=== PATIENT | male | born 1960 | race Caucasian/White ===

== ENCOUNTER 2024-10-16 22:57 | Emergency (ER) | payer MEDICARE, BC, SELFPAY ==
--- OUTSIDE RECORDS SUMMARY | 2024-10-16 23:00 | XMS_ITS | Clinical Summary ---
Author Organization [facility] Address [address] [place] [id number] Care Team Providers Care Budget Coordinator Name Role Phone Eric Vogel MD Primary Care Provider [phone] Brigitte Jimenez MD Unavailable [phone] Allergies Active Allergy Reactions Criticality Noted Date Comments Ketoconazole Rash Medications aspirin (ECOTRIN) 81 mg enteric coated tablet Take 81 mg by mouth once daily. Active nitroglycerin (NITROSTAT) 0.4 mg sublingual tabletIndication s:NSTEMI (non-ST elevation myocardial infarction) (HC) Place 1 Tablet (0.4 mg) under the tongue every 5 minutes if needed for Chest pain 1st choice (Hold if SBP less than 90 mmHg). Up to 3 tablets in 15 minutes. 15 Tablet 05/28/2023 9:55 AM FOUNTAIN SUPERVISOR 4 Active ramipriL (ALTACE) 5 mg capsuleIndicatio ns:NSTEMI (non-ST elevation myocardial infarction) (HC) Take 1 Capsule (5 mg) by mouth once daily. 90 Capsule 4 5 Active atorvastatin (LIPITOR) 80 mg tabletIndication s:NSTEMI (non-ST elevation myocardial infarction) (HC) Take 1 Tablet (80 mg) by mouth once daily. For Cholesterol. 90 Tablet 3 5 Active famotidine (PEPCID) 40 mg tabletIndication s:Gastroesophage al reflux disease, unspecified whether esophagitis present Take 1 Tablet (40 mg) by mouth once daily. For stomach acid. 90 Tablet 3 5 Active gabapentin (NEURONTIN) 300 mg capsuleIndicatio ns:Neck pain, chronic,Radicula r pain in right arm Take 1 Capsule (300 mg) by mouth at bedtime. For nerve symptoms. 90 Capsule 3 5 Active pantoprazole (PROTONIX) 40 mg delayed-release tabletIndication s:Gastroesophage al reflux disease, unspecified whether esophagitis present Take 1 Tablet (40 mg) by mouth once daily. For stomach acid. 90 Tablet 3 5 Active polyethylene glycol-electroly te (GOLYTELY) 236-22.74-6.74 -5.86 gram suspensionIndica tions:Encounter for screening colonoscopy Drink 2 liters the day before the procedure and 2 liters 6 hours prior to procedure. 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 Sosa, increased ramipril to 5 mg a day ASHD (arteriosclerotic heart disease) 05/28/2023 Overview (05/28/2023): - angiogram : s/p EDUAR mLAD Unstable angina 05/27/2023 Dyslipidemia 05/27/2023 NSTEMI (non-ST elevation myocardial infarction) 05/26/2023 Overview (05/26/2023): April 2023: Occurred when at [facility], with hsTroponin peaking over 1,000. Elevated fasting glucose 04/08/2023 Overview (05/08/2024): March 2023: glucose 111. Needs recheck. May 2023: Fasting glucose 114 and hemoglobin A1c of 5.9 on recheck. April 2024: Hemoglobin A1c 5.8 and glucose 108. 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 June 2023: Atorvastatin (Lipitor) 80 mg was started after new diagnosis of acute UT May 2023. Allergic conjunctivitis of both eyes 12/09/2019 Umbilical hernia without mention of obstruction or gangrene 06/19/2011 Colon polyp 05/21/2011 Overview (06/23/2024): Colonoscopy 04/2011 polyps repeat in 3 years Colonoscopy 02/2016 multiple polyps repeat in 3 years Colonoscopy 02/2020 polyps, repeat in 3 years Colonoscopy 06/2024 3-TA, repeat in 5 years Nephrolithiasis 08/27/2009 GERD (gastroesophageal reflux disease) 0 Displacement of lumbar inter vertebral disc without myelopathy 09/08/2007 Overview (12/03/2016): ~ May 2016: L4-L5 TF epidural steroid injection by Dr. Mckeon, 80% improvement for 1 month. ~ October 2016: L3-L4 Interlaminar epidural steroid injection by Dr. Mckeon. Significant improvement. Thoracic or lumbosacral neur itis or radiculitis, unspecified 09/08/2007 Immunizations Immunization Administration Dates Next Due COVID-19 vaccine ([employer] 30mcg/0.3mL) PF, MDV 06/29/2020,06/01/2020 Hepatitis B (Adult) 12/16/2018,07/05/2018,2018 Influenza Virus, Unspecified 12/22/2015 Influenza, IIV4 (=>6mos) MDV 12/06/2019,01/18/20 19 Influenza, Inactivated AIIV4 (Age 65+ Years) Preserv Free 04/06/2023 Influenza, Inactivated IIV3 (Age 65+ Years) Preserv Free 03/29/2024 Pneumococcal Conj 20-valent (Prevnar 20) 024 Tdap 05/14/2009 Family History Medical History Relation Name Comments Heart Disease Father CHF. Arthritis Mother Hypertension Mother Relation Name Status Comments Father Mother Alive Social History Tobacco Use Types Packs/Day Years Used Date Smoking Tobacco: Former Cigarettes Q uit: 03/23/1977 Smokeless Tobacco: Never Tobacco Cessation:Counseling Given: Yes Alcohol Use Standard Drinks/Week Comments Yes 6 (1 standard drink = 0.6 oz pur e alcohol) 6pk - 12 pk through the week PHQ-2 Answer Date Recorded PHQ-2 TOTAL SCORE 0 04/04/2024 Social Connections Answer Date Recorded Do you often feel lonely or isolated from those around you? 0 05/28/2023 Financial Resource Strain Answer Date R ecorded Difficulty of Paying Living Expenses 3 05/28/2023 Difficulty of Paying Living Expenses Not on file 05/28/2023 Food Insecurity Answer Date Recorded Do you worry your food will run out before you are able to buy more? 1 05/28/2023 Transportation Needs Answer Date Record ed Does lack of transportation keep you from medica l appointments? 1 05/28/2023 Does lack of transportation keep you from work, meetings or getting things that you need? 1 05/28/2023 Housing Stability Answer Date Recorded What is your housing situation today? 1 05/28/2023 Interpersonal Safety Answer Date Record ed Are you being hit, kicked, p ushed or yelled at (see row info)? No 05/28/2023 Interpersonal Safety Abuse 12 - 18 Not on file 05/28/2023 Interpersonal Safety Ambulatory Vulnerability No t on file 05/28/2023 Utilities Answer Date Recorded Do you have trouble paying f or utilities (for example, heat, electricity, water, phone)? 1 05/28/2023 Sex and Gender Information Value Date Recorded Sex Assigned at Not on file Legal Sex Male 6:24 AM FOUNTAIN SUPERVISOR Gender Identity Not on file Sexual Orientation Not on file Obstetrics History Last Filed Vital Signs Vital Sign Reading Time Taken Comments Blood Pressure 121/72 05/23/2024 9:56 AM FOUNTAIN SUPERVISOR Pulse 49 05/23/2024 9:56 AM FOUNTAIN SUPERVISOR Temperature 36.6 C (97.9 F) 05/28/2023 7:50 AM FOUNTAIN SUPERVISOR Respiratory Rate 16 05/28/2023 7:50 AM FOUNTAIN SUPERVISOR Oxygen Saturation 100% 05/23/2024 9:56 AM FOUNTAIN SUPERVISOR Inhaled Oxygen Concentration - - Weight 95.8 kg (211 lb 3.2 oz) 05/23/2024 9:56 A M FOUNTAIN SUPERVISOR Height 174.5 cm (5' 8.7) 05/23/2024 9:56 AM FOUNTAIN SUPERVISOR Body Mass Index 31.46 05/23/2024 9:56 AM FOUNTAIN SUPERVISOR Plan of Treatment Health Maintenance Due Date Last Done Comments Zoster (shingles) series for age 50+ (1 of 2) 2008 RSV vaccine for adults or (1 - Risk 60-74 years 1-dose series) 2018 Tetanus booster 05/14/2019 05/14/2009, 05/14/2009 AAA screening age 65-74 2023 COVID-19 vaccine series ( - season) 2023 01/03/2022, 01/29/2021, 06/29/2020, Additional history exists Influenza Vaccine (#1) 2024 , 04/06/2023, 12/06/2019, Additional history exists Depression screening for age 12+ 04/04/2025 04/04/2024, 09/09/2023, 06/17/2023, Additional history exists Medicare Wellness for age 65+ 04/09/2025 04/08/2024, 04/06/2023 BMI (ht and wt on same day) for age 18+ 05/23/2025 05/23/2024, 04/08/2024, 04/06/2023, Additional history exists Lipids for age 45-75 05/02/2029 05/02/2024, 07/13/2023, 05/28/2023, Additional history exists Colonoscopy through age 75 06/21/202906/21, 02/24/2020, 02/24/2020, Additional history exists Hepatitis B series for 19+ Completed 12/16, 07/05/2018, 06/01/2018 Hepatitis C screening for ag e 18-79 Completed 04/06/2023 Pneumococcal series for age 50+ Completed Procedures Procedure Name Priority Date/Time Associated Diagnosis Comments SCAN-COLONOSCOPY 06/21/2024 12:0 0 AM CDT LIPID PANEL W REFLEX MEASURED LDL Routine 05/02/2024 7:49 AM FOUNTAIN SUPERVISOR Hypercholesterolemi a ANTI HCV Routine 04/06/2023 10:02 AM FOUNTAIN SUPERVISOR Need for hepatitis C screening test from Last 3 Months or Most Recently Relevant to Health Maintenance Results * SCAN-COLONOSCOPY (06/21/2024 12:00 AM CDT) us Scanner OTHER Final Result * LIPID PANEL W REFLEX MEASURED LDL (05/02/2024 7:49 AM FOUNTAIN SUPERVISOR) CHOLESTEROL, TOTAL 117 <200 mg/dL [facility] HDL CHOLESTEROL 51 > OR = 40 mg/dL [facility] TRIGLYCERIDES 78 <150 mg/dL [facility] LDL-CHOLESTEROL 50 mg/dL (calc) [facility] Comment: Reference range: <100 Desirable range <100 mg/dL for primary prevention; <70 mg/dL for patients with CHD or diabetic patients with > or = 2 CHD risk factors. LDL-C is now calculated using the Romie calculation, which is a validated novel method providing better accuracy than the Friedewald equation in the estimation of LDL-C. Nicko SS et al. WALLY. 2013;310(19): 4184-8359 (http://education.Solaiemes/faq/KEP930) CHOL/HDLC RATIO 2.3 <5.0 (calc) [facility] NON HDL CHOLESTEROL 66 <130 mg/dL (calc) [facility] Comment: For patients with diabetes plus 1 major ASCVD risk factor, treating to a non-HDL-C goal of <100 mg/dL (LDL-C of <70 mg/dL) is considered a therapeutic option. Blood BLOOD SPECIMEN / Unknown 05/02/2024 7:49 AM FOUNTAIN SUPERVISOR 05/02/2024 7:49 AM FOUNTAIN SUPERVISOR us Eric Vogel MD CHEMISTRY Final Res ult [employer] [facility] [address] [place] [address], [facility] [address] [place] [address] * ANTI HCV (04/06/2023 10:02 AM FOUNTAIN SUPERVISOR) HEPATITIS C ANTIBODY Non-Reacti ve Non-React cy 04/06/2023 6:30 PM FOUNTAIN SUPERVISOR [facility] Comment:Please note, per www .CDC.gov: If a patient is known to be at high risk of HCV infection, or is symptomatic, and the physician's suspicion of HCV infection is high, HCV RNA testing is often employed and is of diagnostic value, even after an initial negative anti-HCV test result. Blood BLOOD SPECIMEN / Unknown Venipuncture / Unknown 04/06/2023 10:02 AM FOUNTAIN SUPERVISOR 04/06/2023 10:05 AM FOUNTAIN SUPERVISOR us Eric Vogel MD SEND OUTS Final Res ult [facility] [address] [place] [address], from Last 3 Months or Most Recently Relevant to Health Maintenance Insurance [employer] [place] [employer] [place] BLUE MR PB ONLY [employer] [place] [employer] [place] BLUE HB ONLY MEDICARE PART B HB ONLY MEDICARE PART A HB ONLY Advance Directives * Full Code (Latest Code Status on File) Date Activated Date Inactivated Comments 05/27/2023 3:58 PM 05/28/2023 3:44 PM Question Answer Comments Code Status Discussion: Reviewed Preferences * Full Code Date Activated Date Inactivated Comments 05/27/2023 3:54 PM 05/27/2023 3:58 PM Question Answer Comments Code Status Discussion: Reviewed Preferences Care Teams Budget Coordinator Relationship Specialty Start Date End Date Eric Vogel MD [address] [place] [id number] PCP - General Family Practice 04/06/23 Brigitte Jimenez MD [address] [place] [id number] Cardiology Cardiology - Interventional 04/08/24
[2024-10-16 23:04] VITALS: BP 182/109; PULSE 57; RESP 16; TEMP 36.6; O2SAT 98; BMI 31.6
--- NOTE | 2024-10-16 23:08 | ED.GENADULT ---
HPI - General Adult General Chief complaint: Flank Pain Stated complaint: possible kidney stone Time Seen by Provider: 10/16/24 23:08 History of Present Illness HPI narrative: L flank pain starting yesterday, has been worsening all day. tried 1 vicoden around 2200 with little releif. hx of kidney stones, feels similar. denies fever, some nausea and chills. 64-year-old man presenting to the emergency department with concern of left flank area pain. 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 Today though got pretty intense with sharp almost indescribable pain in the left flank area. Eight or 9 years ago had a very small kidney stone that ultimately he could not pass requiring treatment/retrieval. Did take singular Vicodin about an hour before presentation here without much relief. He has not been experiencing dysuria. No hematuria. No fever. Has felt little chilled. Some nausea. Related Data Home Medications ?Medication ?Instructions ?Recorded ?Confirmed aspirin 81 mg tablet,delayed 81 mg PO DAILY 10/16/24 10/16/24 release (Adult Aspirin Regimen) atorvastatin 80 mg tablet 80 mg PO DAILY 10/16/24 10/16/24 famotidine 40 mg tablet 40 mg PO DAILY 10/16/24 10/16/24 gabapentin 300 mg capsule 300 mg PO QPM 10/16/24 10/16/24 pantoprazole 40 mg tablet,delayed 40 mg PO DAILY 10/16/24 10/16/24 release Previous Rx's ?Medication ?Instructions ?Recorded tamsulosin 0.4 mg capsule 0.4 mg PO DAILY #15 caps 10/17/24 Allergies Allergy/AdvReac Type Severity Reaction Status Date / Time ketoconazole Allergy Verified 10/16/24 23:07 Review of Systems Status of ROS: Reports: 6 or more systems reviewed and unremarkable except as noted in History and below [facility] Social History Smoking Status: Never smoker Do you use any of these nicotine containing products: None How often do you have a drink containing alcohol: never AUDIT-C Alcohol total score: 0 Non-prescribed substance use: denies use Exam Narrative: Exam Narrative: Very pleasant. Does appear little uncomfortable. Heart in slower rate. Regular rhythm. Breathing easily. Lungs appear clear. Abdomen is soft, left low abdominal discomfort. No masses appreciated. Moving all extremities without difficulty. No extremity edema. Const: Vital Signs, click to edit/add: Vital Signs - 24 hr 10/16/24 23:04 10/17/24 00:05 Temperature 98 F Pulse Rate [Pulse Oximeter] 57 L 63 Respiratory Rate 16 16 Blood Pressure [Ri ght Upper Arm] 182/109 H 126/80 Pulse Oximetry 98 94 Oxygen Delivery Me thod Room Air Room Air Documenting provider has reviewed patient's vital signs: yes Course Vital Signs Vital signs: Initial Vital Signs Temperature 98 F 10/16/24 23:04 Temperature Source Temporal Artery Scan 10/16/24 23:04 Pulse Rate 57 L 10/16/24 23:04 Respiratory Rate 16 10/16/24 23:04 Blood Pressure 182/109 H 10/16/24 23:04 Blood Pressure Mean 133 H 10/16/24 23:04 Blood Pressure Position Sitting 10/16/24 23:04 Pulse Oximetry 98 10/16/24 23:04 Oxygen Delivery Method Room Air 10/16/24 23:04 Vital Signs Temperature 98 F 10/16/24 23:04 Pulse Rate 57 L 10/16/24 23:04 Respiratory Rate 16 10/16/24 23:04 Blood Pressure 182/109 H 10/16/24 23:04 Pulse Oximetry 98 10/16/24 23:04 Oxygen Delivery Method Room Air 10/16/24 23:04 Temperature 98 F 10/16/24 23:04 Pulse Rate 63 10/17/24 00:05 Respiratory Rate 16 10/17/24 00:05 Blood Pressure 126/80 10/17/24 00:05 Pulse Oximetry 94 10/17/24 00:05 Oxygen Delivery Method Room Air 10/17/24 00:05 Medications Administered Medications: Discontinued Medications Generic Name Dose Route Start Last Admin Trade Name Freq PRN Reason Stop Dose Admin Sodium Chloride 500 mls @ 500 mls/hr 10/16/24 23:13 10/17/24 00:05 0.9 % Sodium Chloride 500 Ml IV 10/17/24 00:12 Infused .Q1H ONE Infusion Ketorolac Tromethamine 30 mg 10/16/24 23:13 10/16/24 23:21 Ketorolac 30 Mg/Ml Inj IVP 10/16/24 23:14 30 mg ONCE ONE Administration Morphine Sulfate 4 mg 10/16/24 23:13 10/16/24 23:22 Morphine 4 Mg/Ml Inj IVP 10/16/24 23:14 4 mg ONCE ONE Administration Ondansetron HCl 4 mg 10/16/24 23:13 10/16/24 23:22 Ondansetron 2 Mg/Ml Inj IVP 10/16/24 23:14 4 mg ONCE ONE Administration Tamsulosin HCl 0.4 mg 10/17/24 00:22 10/17/24 00:37 Tamsulosin Hcl 0.4 Mg Capsule PO 10/17/24 00:23 0.4 mg ONCE ONE Administration Medical Decision Making MDM Narrative Medical decision making narrative: I think story is consistent with ureteral stone and colic. Will look for evidence of urinary tract infection. Does not appear to have symptoms though of epididymal orchitis. I suppose diverticulitis could be in differential as well presuming normal anatomy. Mesenteric adenitis? Initiated on IV fluids and morphine Zofran Toradol. Urinalysis primarily with red cells; less of an infectious pattern I think than inflammatory. Is improved, relieved with treatment as above. CT scan of abdomen pelvis independently reviewed by me looks to show an approximately 3 mm stone in the distal left ureter. Labs are reassuring otherwise. Radiology over-read below INDICATION: Severe left-sided flank pain. History of kidney stone. TECHNIQUE: CT abdomen and pelvis without contrast. COMPARISON: CT abdomen pelvis 09/10/2009. FINDINGS: Lower chest: Unremarkable. Liver: Hepatic cysts largest measuring up to 3.5 cm. Additional subcentimeter hypodensities are too small to characterize on this exam, but may represent additional cysts. Gallbladder and bile ducts: Unremarkable. Pancreas: Unremarkable. Spleen: Unremarkable. Adrenal glands: Unremarkable. Kidneys: Mild left-sided hydronephrosis and hydroureter leading to a 3 mm left distal ureteral calculus (series 2, image 122). Punctate nonobstructing right renal calculi. No right-sided hydronephrosis or hydroureter. Mild left-sided periureteral and perinephric fat stranding. GI tract: No bowel obstruction. No suspicious bowel wall thickening. No CT evidence of acute appendicitis. Vasculature: No abdominal aortic aneurysm. There are atherosclerotic calcifications. Lymph nodes: No suspicious lymphadenopathy. Peritoneum/Abdominal Wall: No ascites or pneumoperitoneum. No acute abdominal wall abnormality. Pelvis: Circumferential bladder wall thickening. Unremarkable prostate and seminal vesicles. Bones: No acute abnormality. IMPRESSION: 1. Left distal ureteral calculus measuring 3 mm with mild associated hydroureteronephrosis. 2. Bladder wall thickening and mild left-sided perinephric/periureteral fat stranding. Correlate for cystitis and ascending urinary tract infection. Please note that all CT scans at this facility use dose modulation, iterative reconstruction, and/or weight-based dosing when appropriate to reduce radiation dose to as low as reasonably achievable. Dictated by Narciso Herrera MD @ 10/17/2024 12:07:12 AM See patient discharge plan for further discussion Continue to hydrate with water. Would consider straining your urine over this next week. Am prescribing Flomax. This can help with some spasming pain. Take this until you think stone has passed. Otherwise Percocet for pain and Zofran for nausea from [employer]. Can take also up to 800 mg of ibuprofen per dose. Be aware that each tablet of Percocet contains 5 mg of oxycodone and 325 mg of acetaminophen. Be seen for uncontrolled pain, evolution of fever, pain lasting 5 days. A urine culture will be pending here. We will call you if any intervention might be needed. Lab Data Lab results reviewed: Yes I reviewed the patient's lab results Labs: Lab Results 10/16/24 10/16/24 Range/Units 22:12 23:10 WBC 6.22 (4.50-11.00) K/uL RBC 4.79 (4.30-5.90) m/uL Hgb 14.5 (13.5-17.5) gm/dL Hct 43.3 (37.0-53.0) % MCV 90 (80-100) fL MCH 30 (26-34) pg MCHC 34 (32-36) gm/dL RDW Coeff of Sanna 12.3 (11.5-15.5) % Plt Count 197 (140-440) K/uL Neut % (Auto) 60.8 (42.0-72.0) % Lymph % (Auto) 25.9 (20-44) % Pacific % (Auto) 9.6 (0.0-11.0) % Eos % (Auto) 2.4 (0.0-7.0) % Baso % (Auto) 0.5 (0.0-3.0) % Neut # (Auto) 3.78 (1.7-7.0) K/uL Lymph # (Auto) 1.61 (0.90-2.90) K/uL Pacific # (Auto) 0.60 (0.00-0.90) K/UL Eos # (Auto) 0.15 (0.00-0.50) K/uL Baso # (Auto) 0.03 (0.00-0.30) K/uL Abs Immat Gran (auto) 0.05 (0.00-0.30) K/uL Imm/Tot Granulo (auto) 0.8 % C-Reactive Protein < 0.5 L (0.5-1.0) mg/dL Urine Color Yellow (Yellow) Urine Appearance Clear (Clear) Urine pH 5.5 (5.0-8.5) Ur Specific [place] 1.025 (1.000-1.030) Urine Protein 1+ A (Negative) Urine Glucose (UA) Negative (Negative) Urine Ketones Negative (Negative) Urine Blood 2+ A (Negative) Urine Nitrite Negative (Negative) Urine Bilirubin Negative (Negative) Urine Urobilinogen 1.0 (0.2-1.0) Ur Leukocyte Esterase Negative (Negative) Urine RBC 10-25 A (0-2) Urine WBC 2-5 (0-5) Ur Squamous Epith Cells Few (None-Few) Urine Bacteria Few A (None) Urine Mucus Moderate A (None) Discharge Plan Discharge Clinical Impression: Left ureteral stone, Ureteral colic Patient Disposition: Home w/ Parent or Adult Condition: Improved Additional Instructions: Continue to hydrate with water. Would consider straining your urine over this next week. Am prescribing Flomax. This can help with some spasming pain. Take this until you think stone has passed. Otherwise Percocet for pain and Zofran for nausea from [employer]. Can take also up to 800 mg of ibuprofen per dose. Be aware that each tablet of Percocet contains 5 mg of oxycodone and 325 mg of acetaminophen. Be seen for uncontrolled pain, evolution of fever, pain lasting 5 days. A urine culture will be pending here. We will call you if any intervention might be needed. Prescriptions: New tamsulosin 0.4 mg capsule 0.4 mg PO DAILY Qty: 15 0RF No Action atorvastatin 80 mg tablet 80 mg PO DAILY famotidine 40 mg tablet 40 mg PO DAILY pantoprazole 40 mg tablet,delayed release (DR/EC) 40 mg PO DAILY gabapentin 300 mg capsule 300 mg PO QPM aspirin [Adult Aspirin Regimen] 81 mg tablet,delayed release (DR/EC) 81 mg PO DAILY Follow Up/Referrals: Eric Vogel MD [Primary Care Provider, Family Practice] Stand Alone Forms: [employer] Info Instructions
--- NOTE | 2024-10-16 23:13 | CRLHL7_ITS ---
For Patients: As a result of the Century Cures Act, medical imaging exams and procedure reports are released immediately into your electronic medical record. You may view this report before your referring provider. If you have questions, please contact your health care provider. INDICATION: Severe left-sided flank pain. History of kidney stone. TECHNIQUE: CT abdomen and pelvis without contrast. COMPARISON: CT abdomen pelvis 09/10/2009. FINDINGS: Lower chest: Unremarkable. Liver: Hepatic cysts largest measuring up to 3.5 cm. Additional subcentimeter hypodensities are too small to characterize on this exam, but may represent additional cysts. Gallbladder and bile ducts: Unremarkable. Pancreas: Unremarkable. Spleen: Unremarkable. Adrenal glands: Unremarkable. Kidneys: Mild left-sided hydronephrosis and hydroureter leading to a 3 mm left distal ureteral calculus (series 2, image 122). Punctate nonobstructing right renal calculi. No right-sided hydronephrosis or hydroureter. Mild left-sided periureteral and perinephric fat stranding. GI tract: No bowel obstruction. No suspicious bowel wall thickening. No CT evidence of acute appendicitis. Vasculature: No abdominal aortic aneurysm. There are atherosclerotic calcifications. Lymph nodes: No suspicious lymphadenopathy. Peritoneum/Abdominal Wall: No ascites or pneumoperitoneum. No acute abdominal wall abnormality. Pelvis: Circumferential bladder wall thickening. Unremarkable prostate and seminal vesicles. Bones: No acute abnormality. IMPRESSION: 1. Left distal ureteral calculus measuring 3 mm with mild associated hydroureteronephrosis. 2. Bladder wall thickening and mild left-sided perinephric/periureteral fat stranding. Correlate for cystitis and ascending urinary tract infection. Please note that all CT scans at this facility use dose modulation, iterative reconstruction, and/or weight-based dosing when appropriate to reduce radiation dose to as low as reasonably achievable. Dictated by Narciso Herrera MD @ 10/17/2024 12:07:12 AM (Electronically Signed)
[2024-10-16] MEDS: 0.9 % SODIUM CHLORIDE 500 ML 500 ML IV (23:21)
[2024-10-16] MEDS: MORPHINE 4 MG/ML INJ IVP (23:22)
[2024-10-16] MEDS: ONDANSETRON 2 MG/ML inj 4 MG IVP (23:22)
[2024-10-16 23:23] LABS: Hematocrit 43.3 % (37.0-53.0); Hemoglobin* 14.5 gm/dL (13.5-17.5); Immature Granulocytes Abs Auto 0.05 K/uL (0.00-0.30); Immature Granulocytes Pct Auto 0.8 %; Lymphocytes Absolute Auto 1.61 K/uL (0.90-2.90); Mean Corpuscular HGB Conc 34 gm/dL (32-36); Mean Corpuscular Hemoglobin 30 pg (26-34); Mean Corpuscular Volume 90 fL (80-100); RDW Coefficient of Variation % 12.3 % (11.5-15.5); Red Blood Count 4.79 m/uL (4.30-5.90); White Blood Count* 6.22 K/uL (4.50-11.00)
[2024-10-16 23:24] LABS: Appearance Urine Clear (Clear)
[2024-10-16 23:29] LABS: Slide Review Reflex No
[2024-10-17 00:05] VITALS: BP 126/80; PULSE 63; RESP 16; O2SAT 94
--- OUTSIDE RECORDS SUMMARY | 2024-10-17 00:10 | XMS_ITS | Clinical Summary ---
Author Organization [employer] [facility] Address [address] [place] [id number] Care Team Providers Care Roustabout Crew Pusher Name Role Phone Eric Vogel MD Primary Care Provider [phone] Brigitte Jimenez MD Unavailable [phone] Allergies Active Allergy Reactions Criticality Noted Date [...] 15 minutes. 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 Elevated fasting glucose 04/08/2023 Overview (05/08/2024): March 2023: glucose 111. Needs recheck. May 2023: Fasting glucose 114 and hemoglobin A1c of 5.9 on recheck. April 2024: Hemoglobin A1c 5.8 and glucose 108. Hypercholesterolemia 04/08/2023 Overview (07/15/2023): March 2023: Cholesterol results ok, but ASCVD Risk Phys Ther: 16 % 10 Year risk after info entered, needs follow up appointment to discuss. June 2023: Atorvastatin (Lipitor) 80 mg was started after new diagnosis of acute AL May 2023. Allergic conjunctivitis of both eyes [...] Immunization Administration Dates Next Due COVID-19 vaccine (Lovely 30mcg/0.3mL) PF, MDV 06/29/2020,06/01/2020 Hepatitis B (Adult) [...] on file Legal Sex Male 6:24 AM SCOOP FILLER Gender Identity Not on file Sexual Orientation Not on file Obstetrics History Last Filed Vital Signs Vital Sign Reading Time Taken Comments Blood Pressure 121/72 05/23/2024 9:56 AM SCOOP FILLER Pulse 49 05/23/2024 9:56 AM SCOOP FILLER Temperature 36.6 C (97.9 F) 05/28/2023 7:50 AM SCOOP FILLER Respiratory Rate 16 05/28/2023 7:50 AM SCOOP FILLER Oxygen Saturation 100% 05/23/2024 9:56 AM SCOOP FILLER Inhaled Oxygen Concentration - - Weight 95.8 kg (211 lb 3.2 oz) 05/23/2024 9:56 A M SCOOP FILLER Height 174.5 cm (5' 8.7) 05/23/2024 9:56 AM SCOOP FILLER Body Mass Index 31.46 05/23/2024 9:56 AM SCOOP FILLER Plan of Treatment Health Maintenance Due Date [...] REFLEX MEASURED LDL Routine 05/02/2024 7:49 AM SCOOP FILLER Hypercholesterolemi a ANTI HCV Routine 04/06/2023 10:02 AM SCOOP FILLER Need for hepatitis C screening test from Last 3 Months or Most Recently Relevant to Health Maintenance Results * SCAN-COLONOSCOPY (06/21/2024 12:00 AM CDT) us Scanner OTHER Final Result * LIPID PANEL W REFLEX MEASURED LDL (05/02/2024 7:49 AM SCOOP FILLER) CHOLESTEROL, TOTAL 117 <200 mg/dL [facility] [...] LDL-C. Nicko SS et al. WALLY. 2013;310(19): 0659-5125 (http://education.QRuso/faq/VZY481) CHOL/HDLC RATIO 2.3 <5.0 (calc) [facility] NON HDL CHOLESTEROL 66 <130 mg/dL (calc) [facility] Comment: For patients with diabetes plus 1 major ASCVD risk factor, treating to a non-HDL-C goal of <100 mg/dL (LDL-C of <70 mg/dL) is considered a therapeutic option. Blood BLOOD SPECIMEN / Unknown 05/02/2024 7:49 AM SCOOP FILLER 05/02/2024 7:49 AM SCOOP FILLER us Eric Vogel MD CHEMISTRY Final Res ult [facility] [address] [place] [address], [facility] [address] [place] [address] * ANTI HCV (04/06/2023 10:02 AM SCOOP FILLER) HEPATITIS C ANTIBODY Non-Reacti ve Non-React cy 04/06/2023 6:30 PM SCOOP FILLER [facility] Comment:Please note, per www .CDC.gov: If a patient is known to be at high risk of HCV infection, or is symptomatic, and the physician's suspicion of HCV infection is high, HCV RNA testing is often employed and is of diagnostic value, even after an initial negative anti-HCV test result. Blood BLOOD SPECIMEN / Unknown Venipuncture / Unknown 04/06/2023 10:02 AM SCOOP FILLER 04/06/2023 10:05 AM SCOOP FILLER us Eric Vogel MD SEND OUTS Final Res ult [facility] [address] [place] [address], from Last 3 Months or Most Recently Relevant to Health Maintenance Insurance [employer] BLUE MR PB ONLY [employer] BLUE HB ONLY MEDICARE PART B HB [...] Code Status Discussion: Reviewed Preferences Care Teams Roustabout Crew Pusher Relationship Specialty Start Date End Date Eric Vogel MD [address] [place] [id number] PCP - General Family Practice 04/06/23 Brigitte Jimenez MD [address] [place] [id number] Cardiology Cardiology - Interventional 04/08/24
[2024-10-17] MEDS: TAMSULOSIN HCL 0.4 MG CAPSULE PO (00:37)
== END 2024-10-17 00:47 | disposition home or self-care (01) ==
PROVIDERS: Emergency Provider Family Medicine; PCP Family Medicine
DX: N20.1 Calculus of ureter (principal); N23 Unspecified renal colic; Z87.442 Personal history of urinary calculi
CPT/HCPCS: 36415; 74176; 81001; 85025; 86140; 87086; 99284; A9270; J1885; J2270; J2405; J7030

== ENCOUNTER 2024-10-27 13:55 | Outpatient (CLI) | payer MEDICARE, BC, SELFPAY ==
--- NOTE | 2024-10-27 14:00 | CRLHL7_ITS ---
For Patients: As a result of the Century Cures Act, medical imaging exams and procedure reports are released immediately into your electronic medical record. You may view this report before your referring provider. If you have questions, please contact your health care provider. INDICATION: Check position of stone. TECHNIQUE: CT abdomen and pelvis without contrast. COMPARISON: October 16, 2024. FINDINGS: Lower chest: Scattered atelectasis. Liver: Stable hepatic cysts. Normal in size and attenuation. No suspicious masses. Gallbladder and bile ducts: No stones or inflammation. No biliary dilatation. Pancreas: Unremarkable. No mass or inflammation. Spleen: Normal in size. No masses. Adrenal glands: Normal in size. No nodules. Kidneys: Persistent mild left-sided hydroureteronephrosis secondary to 3 millimeter obstructing left UVJ stone in similar position given changes in technique. Additional punctate nonobstructing right renal stones. GI tract: Colonic diverticulosis without diverticulitis. Normal in caliber. No sign of mass or inflammation. Vasculature: Aortoiliac arterial calcifications. Abdominal aorta is normal in caliber. Lymph nodes: No lymphadenopathy. Peritoneum/Abdominal Wall: Unremarkable. No sign of mass or infiltration. No free air or significant free fluid. Pelvis: Prominent prostate gland. Mildly distended bladder with circumferential wall thickening. Recommend correlation with urinalysis if UTI suspected. No pelvic masses. Bones: Unremarkable for age. IMPRESSION: Persistent mild left-sided hydroureteronephrosis secondary to 3 millimeter obstructing left UVJ stone in similar position given changes in technique. Please note that all CT scans at this facility use dose modulation, iterative reconstruction, and/or weight-based dosing when appropriate to reduce radiation dose to as low as reasonably achievable. Dictated by Nicho Molina MD @ 10/27/2024 8:30:14 PM (Electronically Signed)
== END 2024-10-27 13:56 | disposition home or self-care (01) ==
LOC: CT 13:56
PROVIDERS: PCP Family Medicine; Visit Provider Physician Assistant
DX: N20.0 Calculus of kidney (principal); N13.30 Unspecified hydronephrosis
CPT/HCPCS: 74176